=== PATIENT | female | born 2005 | race Caucasian/White ===

== ENCOUNTER 2024-05-22 20:18 | Emergency (ER) | payer OTHER ==
[~2024-05-22] VITALS: Ht 165.1 cm; Wt 54.4 kg
[2024-05-22] MEDS ORDERED: Ibuprofen 600 MG Tab PO ONE (21:25)
[2024-05-22] MEDS ORDERED: HYDROcodone 5-APAP 325 TAB PO ONE (21:25)
[2024-05-22] MEDS ORDERED: HYDR1TAB94 PO (21:49)
== END 2024-05-22 22:03 | disposition home or self-care (01) ==
LOC: ER 20:18
DX: S52.501A Unspecified fracture of the lower end of right radius, initial encounter for closed fracture (principal); W18.30XA Fall on same level, unspecified, initial encounter
CPT/HCPCS: 29125; 73110; 99283-25; A9270

== ENCOUNTER → 2024-07-07 | Outpatient (CLI) | payer OTHER ==
[~2024-07-07] MED LIST: HYDR1TAB94 PO
== END | disposition home or self-care (01) ==
LOC: LAB 16:22 → LAB SHORT 16:22
DX: N39.0 Urinary tract infection, site not specified (principal)
CPT/HCPCS: 87086

== ENCOUNTER 2024-10-19 23:24 | Emergency (ER) | payer OTHER ==
[~2024-10-19] VITALS: Ht 162.6 cm; Wt 45.4 kg
== END 2024-10-20 01:51 | disposition home or self-care (01) ==
LOC: ER 23:24
DX: J32.9 Chronic sinusitis, unspecified (principal); B97.89 Other viral agents as the cause of diseases classified elsewhere
CPT/HCPCS: 99283

== ENCOUNTER 2024-11-01 00:05 | Emergency (ER) | payer OTHER ==
[~2024-11-01] VITALS: Ht 162.6 cm; Wt 40.8 kg
[2024-11-01] MEDS ORDERED: KETO10 PO (00:22)
[2024-11-01] MEDS ORDERED: Ketorolac Tromethamine 15mg Vial IM ONE (01:10)
[2024-11-01] MEDS ORDERED: Ondansetron 4 MG SoluTab SL ONE (01:10)
== END 2024-11-01 02:00 | disposition home or self-care (01) ==
LOC: ER 00:05
DX: R51.9 Headache, unspecified (principal); Z82.0 Family history of epilepsy and other diseases of the nervous system
CPT/HCPCS: 96372; 99283-25; A9270; J1885

== ENCOUNTER 2025-02-16 12:19 | Emergency (ER) | payer OTHER ==
[~2025-02-16] VITALS: Ht 162.6 cm; Wt 45.4 kg
[~2025-02-16 12:19] MED LIST changes: +KETO10 PO
[2025-02-16 14:10] LABS: Influenza A, PCR NEGATIVE (NEGATIVE); Influenza B, PCR NEGATIVE (NEGATIVE); Resp Syncytial Virus, PCR NEGATIVE (NEGATIVE); SARS-Cov-2 (COVID-19) PCR, MMC NEGATIVE (NEGATIVE)
[2025-02-16] MEDS ORDERED: Ketorolac Tromethamine 15mg Vial IV ONE (14:25)
== END 2025-02-16 15:26 | disposition home or self-care (01) ==
LOC: ER 12:19
PROVIDERS: Student in an Organized Health Care Education/Training Program
DX: J02.9 Acute pharyngitis, unspecified (principal)
CPT/HCPCS: 0241U; 86308; 87081; 87147; 87430; 96374; 99283-25; J1885

== ENCOUNTER 2025-03-11 19:50 | Emergency (ER) | payer OTHER ==
[~2025-03-11] VITALS: Ht 162.6 cm; Wt 45.4 kg
[2025-03-11] MEDS ORDERED: GABA300 PO (21:53)
== END 2025-03-11 22:02 | disposition home or self-care (01) ==
LOC: ER 19:50
DX: G60.8 Other hereditary and idiopathic neuropathies (principal); Z79.899 Other long term (current) drug therapy
CPT/HCPCS: 73110; 99283-25

== ENCOUNTER 2025-06-10 00:26 | Emergency (ER) | payer BC, OTHER ==
[~2025-06-10] VITALS: Ht 162.6 cm; Wt 44.5 kg
[~2025-06-10 00:26] MED LIST changes: +GABA300 PO
[2025-06-10 01:24] LABS: BASOPHILS ABSOLUTE AUTO 0.06 K/mm3 (0.00-0.23); BASOPHILS PERCENT AUTO 1 % (0-2); EOSINOPHILS ABSOLUTE AUTO 0.25 K/mm3 (0.00-0.68); EOSINOPHILS PERCENT AUTO 3 % (0-6); Hematocrit 40.5 % (33.0-51.0); Hemoglobin 14.4 g/dL (11.5-16.0); IMMATURE GRAN ABSOLUTE AUTO 0.05 K/mm3 (0.00-0.10); IMMATURE GRAN PERCENT AUTO 1 % (0-1); LYMPHOCYTES ABSOLUTE AUTO 2.23 K/mm3 (0.84-5.20); LYMPHOCYTES PERCENT AUTO 28 % (21-46); MONOCYTES ABSOLUTE AUTO 0.33 K/mm3 (0.16-1.47); MONOCYTES PERCENT AUTO 4 % (4-13); Mean Corpuscular HGB Conc 35.6 g/dL (31.5-36.5); Mean Corpuscular Volume 85 fL (80-100); NEUTROPHILS ABSOLUTE AUTO 5.12 K/mm3 (1.96-9.15); NEUTROPHILS PERCENT AUTO 64 % (41-73); NRBC ABSOLUTE 0.00 K/mm3 (0.00-0.02); NRBC Auto 0.0 /100 WBC (0.0-0.2); Platelet Count 264 K/mm3 (150-400); RDW Coefficient Variation 12.0 % (11.7-14.2); RDW Standard Deviation 36.7 fL (35.1-46.3)
[2025-06-10 01:41] LABS: Alanine Aminotransfer (ALT/SGP 11.0 U/L (12-78); Albumin, Blood 3.9 g/dL (3.4-5.0); Albumin/Globulin Ratio 1.2 (0.8-1.8); Anion Gap 7.0 mmol/L (3-11); Aspartate Aminotrans (AST/SGOT 10.0 U/L (12-37); Bilirubin, Total 0.5 mg/dL (0.1-1.0); Blood Urea Nitrogen 9.0 mg/dL (8-24); CO2, Blood 23.0 mmol/L (21-32); Calcium, Blood 8.3 mg/dL (8.5-10.1); Chloride, Blood 113.0 mmol/L (98-108); Creatinine, Blood 0.7 mg/dL (0.40-1.00); Globulin, Blood 3.2 g/dL (2.2-4.0); Glucose, Blood 112.0 mg/dL (70-99); Potassium, Blood 3.4 mmol/L (3.5-5.5); Sodium, Blood 140.0 mmol/L (136-145); Total Protein, Blood 7.1 g/dL (6.4-8.2)
[2025-06-10] MEDS ORDERED: Ketorolac Tromethamine 30mg Vial IV ONE (07:20)
[2025-06-10] MEDS ORDERED: Dexamethasone Sod Phos 10 MG/ML 1ML VIAL IV ONE (07:20)
== END 2025-06-10 08:47 | disposition home or self-care (01) ==
LOC: ER 00:26
PROVIDERS: Student in an Organized Health Care Education/Training Program
DX: R51.9 Headache, unspecified (principal)
CPT/HCPCS: 80053; 84703; 85025; 96374; 96375; 99284-25; J1100; J1885

== ENCOUNTER 2025-11-05 00:47 | Emergency (ER) | payer BC, OTHER ==
[~2025-11-05] VITALS: Ht 160 cm; Wt 44.5 kg
== END 2025-11-05 03:44 | disposition home or self-care (01) ==
LOC: ER 00:47
DX: F10.929 Alcohol use, unspecified with intoxication, unspecified (principal); G40.A09 Absence epileptic syndrome, not intractable, without status epilepticus; Z79.899 Other long term (current) drug therapy
CPT/HCPCS: 99283